=== PATIENT | male | born 1965 | race Caucasian/White ===

== ENCOUNTER 2022-05-18 19:28 | Inpatient (IN) | payer OTHER ==
[2022-05-18] MEDS ORDERED: METHOCARBAMOL 500 MG TABLET PO ONE (19:37)
[2022-05-18] MEDS ORDERED: LIDOCAINE 5% TOPICAL PATCH TP ONE ×2 (19:37→20:02)
[2022-05-18] MEDS ORDERED: diazePAM 5 MG TABLET PO ONE (19:44)
[2022-05-18] MEDS ORDERED: LIDOCAINE 5% TOPICAL PATCH ONE ×2 (19:53→20:03)
[2022-05-18] MEDS ORDERED: diazePAM 5 MG TABLET ONE (19:53)
[2022-05-18] MEDS ORDERED: METHOCARBAMOL 500 MG TABLET ONE (19:53)
[2022-05-18 20:31] LABS: ALBUMIN 4.1 g/dl (3.4-5.0); BILIRUBIN,TOTAL 0.6 mg/dl (0.2-1); CALCIUM 9.1 mg/dl (8.5-10); POTASSIUM 3.8 mmol/L (3.5-5.1); TOT PROT 6.8 g/dl (6.4-8.2)
[2022-05-18] MEDS ORDERED: SODIUM CHLORIDE 0.9% 500 ML INFUS.BAG IV ONE (20:51)
[2022-05-18] MEDS ORDERED: KETOROLAC TROMETHAMINE 30 MG/1 ML VIAL IVPUSH ONE (21:13)
[2022-05-18] MEDS ORDERED: KETOROLAC TROMETHAMINE 15 MG/ML VIAL ONE (21:16)
[2022-05-18] MEDS ORDERED: diazePAM CARPU-JECT 10 MG/2 ML DISP.SYRIN IVPUSH ONE (21:22)
[2022-05-18] MEDS ORDERED: diazePAM CARPU-JECT 10 MG/2 ML DISP.SYRIN ONE (21:26)
[2022-05-18] MEDS ORDERED: SODIUM CHLORIDE 1,000 ML IV SCH (21:45)
[2022-05-18] MEDS ORDERED: LIDOCAINE PATCH REMOVAL MC SCH (22:00)
[2022-05-18] MEDS: LIDOCAINE PATCH REMOVAL MC SCH (22:20)
[2022-05-18 23:57] VITALS: BMI 29.8
[2022-05-19 07:19] LABS: BASO % 1.3 % (0-2.0); EOS % 7.5 % (0-4.5); HEMATOCRIT 40.9 % (35.4-49); HEMOGLOBIN 13.6 GM/dL (11.7-16.9); LYMPH % 31.3 % (8-40); MCHC 33.2 g/dl (32.0-35.9); MEAN CELL VOLUME 87.2 fl (80-96); MEAN PLT VOLUME 8.3 fl (7.5-11.1); MONO % 6.7 % (3.8-10.2); NEUT % 53.2 % (42.8-82.8); PLATELET COUNT 213 10^3/uL (134-434); RBC 4.69 M/mm3 (4.00-5.60); RDW 14.8 % (11.9-15.9); WHITE BLOOD COUNT 7.2 K/mm3 (4.0-10.0)
[2022-05-19 07:34] LABS: POTASSIUM 4.2 mmol/L (3.5-5.1); SODIUM 140 mmol/L (136-145)
[2022-05-19 07:36] LABS: CALCIUM 8.3 mg/dL (8.5-10.1)
[2022-05-19 07:37] LABS: ALBUMIN 3.2 g/dl (3.4-5.0)
[2022-05-19 07:40] LABS: SGPT/ALT 115 U/L (13-61)
[2022-05-19 07:41] LABS: BILIRUBIN,TOTAL 0.4 mg/dL (0.2-1)
[2022-05-19 10:30] LABS: ALK PHOS 46 U/L (45-117); ANION GAP 7 MMOL/L (8-16); BLOOD UREA NITROGEN 22.1 mg/dL (7-18); CHLORIDE 111 mmol/L (98-107); CO2 22 mmol/L (21-32); CREATININE 0.8 mg/dL (0.55-1.3); GLUCOSE,RANDOM 88 mg/dL (74-106); SGOT/AST 386 U/L (15-37)
[2022-05-19] MEDS ORDERED: ACETAMINOPHEN 1000 MG/100 ML BAG IVPB PRN (10:50)
[2022-05-19] MEDS ORDERED: ACETAMINOPHEN 325 MG TABLET (FP) PO PRN (12:36)
[2022-05-19] MEDS: amLODIPine BESYLATE 5 MG TABLET (FP) PO SCH (13:22)
[2022-05-19] MEDS: oxyCODONE HCL 5 MG TABLET PO PRN ×2 (13:22→20:54)
[2022-05-19] MEDS: SODIUM CHLORIDE 1,000 ML IV SCH (13:24)
[2022-05-19] MEDS: CYCLOBENZAPRINE HCL 10 MG TABLET (FP) PO PRN ×2 (13:28→20:55)
[2022-05-19] MEDS: LIDOCAINE PATCH REMOVAL MC SCH (22:35)
[2022-05-20 08:36] LABS: METHADONE, UR NEGATIVE (NEGATIVE); OPIATES, URI NEGATIVE (NEGATIVE); PHENCYCLIDINE,URINE NEGATIVE (NEGATIVE); URINE BENZODIAZEPINES NEGATIVE (NEGATIVE)
[2022-05-20 08:37] LABS: URINE BARBITURATES NEGATIVE (NEGATIVE)
[2022-05-20 08:38] LABS: COCAINE, UR NEGATIVE (NEGATIVE); URINE AMPHETAMINES NEGATIVE (NEGATIVE)
[2022-05-20] MEDS: amLODIPine BESYLATE 5 MG TABLET (FP) PO SCH (09:22)
[2022-05-20] MEDS: CYCLOBENZAPRINE HCL 10 MG TABLET (FP) PO PRN ×2 (11:52→22:59)
[2022-05-20] MEDS: SODIUM CHLORIDE 1,000 ML IV SCH (11:53)
[2022-05-20 12:31] LABS: ALBUMIN 3.5 g/dl (3.4-5.0); BILIRUBIN,TOTAL 0.6 mg/dl (0.2-1); CALCIUM 8.8 mg/dl (8.5-10); CREATININE 0.9 mg/dl (0.55-1.3); POTASSIUM 4.3 mmol/L (3.5-5.1)
[2022-05-20 14:45] LABS: BASO % 1.2 % (0-2.0); EOS % 5.5 % (0-4.5); HEMATOCRIT 42.2 % (35.4-49); HEMOGLOBIN 14.1 GM/dL (11.7-16.9); MCH 29.8 pg (25.7-33.7); MCHC 33.3 g/dl (32.0-35.9); MEAN CELL VOLUME 89.5 fl (80-96); MEAN PLT VOLUME 8.8 fl (7.5-11.1); MONO % 5.7 % (3.8-10.2); NEUT % 66.6 % (42.8-82.8); PLATELET COUNT 228 10^3/uL (134-434); RBC 4.71 M/mm3 (4.00-5.60); RDW 14.9 % (11.9-15.9); WHITE BLOOD COUNT 7.5 K/mm3 (4.0-10.0)
[2022-05-21] MEDS: CYCLOBENZAPRINE HCL 10 MG TABLET (FP) PO PRN ×2 (09:25→21:33)
[2022-05-21] MEDS: ENOXAPARIN NA (PORCINE) 40 MG/0.4 ML DISP.SYRIN SQ SCH (09:25)
[2022-05-21] MEDS: amLODIPine BESYLATE 5 MG TABLET (FP) PO SCH (09:25)
[2022-05-21 12:27] LABS: ALBUMIN 3.6 g/dl (3.4-5.0); BILIRUBIN,TOTAL 0.5 mg/dl (0.2-1); CREATININE 0.9 mg/dl (0.55-1.3); POTASSIUM 4.2 mmol/L (3.5-5.1); TOT PROT 6.4 g/dl (6.4-8.2)
[2022-05-21] MEDS ORDERED: SODIUM CHLORIDE 1,000 ML IV SCH (13:12)
[2022-05-21] MEDS: SODIUM CHLORIDE 1,000 ML IV SCH (20:43)
[2022-05-22 09:04] LABS: ALBUMIN 3.6 g/dl (3.4-5.0); BILIRUBIN,TOTAL 0.5 mg/dl (0.2-1); CALCIUM 8.9 mg/dl (8.5-10); CREATININE 0.9 mg/dl (0.55-1.3); POTASSIUM 4.5 mmol/L (3.5-5.1); TOT PROT 6.1 g/dl (6.4-8.2)
[2022-05-22 09:56] VITALS: BP 144/88; PULSE 65; RESP 17; TEMP 98.9
[2022-05-22] MEDS: ENOXAPARIN NA (PORCINE) 40 MG/0.4 ML DISP.SYRIN SQ SCH (09:56)
[2022-05-22] MEDS: amLODIPine BESYLATE 5 MG TABLET (FP) PO SCH (09:57)
[2022-05-22] MEDS: CYCLOBENZAPRINE HCL 10 MG TABLET (FP) PO PRN (10:00)
== END 2022-05-22 12:30 | disposition home or self-care (01) | DRG 351 ==
LOC: FER 19:28 → FM/S 21:25 → OBSVTOIN 05-20 14:50
PROVIDERS: ADMIT Internal Medicine; ATTEND Nurse Practitioner Family
DX: M62.82 Rhabdomyolysis (principal); E78.5 Hyperlipidemia, unspecified; K21.9 Gastro-esophageal reflux disease without esophagitis; R74.01 Elevation of levels of liver transaminase levels; I10 Essential (primary) hypertension; R31.29 Other microscopic hematuria; J30.9 Allergic rhinitis, unspecified; M19.90 Unspecified osteoarthritis, unspecified site
CPT/HCPCS: 36415; 71045-TC-FY; 80053; 80307; 81003; 81015; 82550; 82553; 85025; 93005; 99285-25; C9803-CS; G0378; U0003; U0005